=== PATIENT | male | born 1950 | race Two or more races ===

== ENCOUNTER 2018-05-22 09:27 | Emergency (ER) | payer MEDICARE, OTHER ==
[~2018-05-22] VITALS: Ht 170.2 cm; Wt 79.5 kg
[2018-05-22 10:33] VITALS: BP 144/78
[2018-05-22] MEDS ORDERED: HYDROcodone/acetaminophen 5mg/325mg tablet PO ONE (11:15)
[2018-05-22] MEDS ORDERED: bacitracin ointment unit dose packet TP STA (11:15)
[2018-05-22] MEDS ORDERED: bacitracin/polymyxin B 15 GM ointment TP STA (12:08)
== END 2018-05-22 11:36 | disposition home or self-care (01) ==
LOC: ER 09:28
DX: S90.911A Unspecified superficial injury of right ankle, initial encounter (principal); E11.9 Type 2 diabetes mellitus without complications; I10 Essential (primary) hypertension; F17.210 Nicotine dependence, cigarettes, uncomplicated; Z98.890 Other specified postprocedural states; X58.XXXA Exposure to other specified factors, initial encounter; Y93.89 Activity, other specified; Y92.89 Other specified places as the place of occurrence of the external cause; Y99.8 Other external cause status
CPT/HCPCS: 99283; A6255; A6446

== ENCOUNTER 2020-06-05 09:25 | Outpatient (CLI) | payer MEDICARE, MEDICAID ==
[2020-06-05] MEDS ORDERED: silver sulfadiazine cream 50gm TP ONE (09:53)
== END 2020-06-05 10:28 | disposition home or self-care (01) ==
LOC: WOUND CARE 09:25 → EDSTATUS 09:40 → WOUND CARE 10:28
PROVIDERS: ATTEND Nurse Practitioner
DX: T23.202D Burn of second degree of left hand, unspecified site, subsequent encounter (principal); T25.322D Burn of third degree of left foot, subsequent encounter; E11.622 Type 2 diabetes mellitus with other skin ulcer; L98.491 Non-pressure chronic ulcer of skin of other sites limited to breakdown of skin; E11.65 Type 2 diabetes mellitus with hyperglycemia; K74.60 Unspecified cirrhosis of liver; I10 Essential (primary) hypertension; F32.9 Major depressive disorder, single episode, unspecified; F17.210 Nicotine dependence, cigarettes, uncomplicated; Z86.73 Personal history of transient ischemic attack (TIA), and cerebral infarction without residual deficits; Z98.890 Other specified postprocedural states; X08.8XXD Exposure to other specified smoke, fire and flames, subsequent encounter
CPT/HCPCS: 82948; G0463

== ENCOUNTER 2020-06-15 09:33 | Outpatient (CLI) | payer MEDICARE, MEDICAID ==
[2020-06-15] MEDS ORDERED: silver sulfadiazine cream 50gm TP ONE (10:49)
== END 2020-06-15 11:14 | disposition home or self-care (01) ==
LOC: WOUND CARE 09:33 → EDSTATUS 09:40 → WOUND CARE 11:14
PROVIDERS: ATTEND Nurse Practitioner
DX: S51.002D Unspecified open wound of left elbow, subsequent encounter (principal); T25.322D Burn of third degree of left foot, subsequent encounter; T23.202D Burn of second degree of left hand, unspecified site, subsequent encounter; E11.65 Type 2 diabetes mellitus with hyperglycemia; K74.60 Unspecified cirrhosis of liver; I10 Essential (primary) hypertension; F32.9 Major depressive disorder, single episode, unspecified; F17.210 Nicotine dependence, cigarettes, uncomplicated; Z86.73 Personal history of transient ischemic attack (TIA), and cerebral infarction without residual deficits; Z98.890 Other specified postprocedural states; X58.XXXD Exposure to other specified factors, subsequent encounter; X08.8XXD Exposure to other specified smoke, fire and flames, subsequent encounter
CPT/HCPCS: 36416; 82948; G0463

== ENCOUNTER 2020-06-22 09:15 | Day surgery (SDC) | payer MEDICARE, MEDICAID ==
[2020-06-22] MEDS ORDERED: silver sulfadiazine cream 50gm TP ONE (11:04)
== END 2020-06-22 11:15 | disposition home or self-care (01) ==
LOC: WOUND CARE 09:15
PROVIDERS: ATTEND Nurse Practitioner Family
DX: T25.322D Burn of third degree of left foot, subsequent encounter (principal); E11.65 Type 2 diabetes mellitus with hyperglycemia; K74.60 Unspecified cirrhosis of liver; I10 Essential (primary) hypertension; F32.9 Major depressive disorder, single episode, unspecified; F17.210 Nicotine dependence, cigarettes, uncomplicated; Z86.73 Personal history of transient ischemic attack (TIA), and cerebral infarction without residual deficits; Z98.890 Other specified postprocedural states; X08.8XXD Exposure to other specified smoke, fire and flames, subsequent encounter
CPT/HCPCS: 16020; 97597; 97598

== ENCOUNTER 2020-07-27 09:30 | Day surgery (SDC) | payer MEDICARE, MEDICAID ==
[2020-07-27] MEDS ORDERED: LIDOcaine 2% 5ml jelly ONE (09:48)
== END 2020-07-27 10:37 | disposition home or self-care (01) ==
LOC: WOUND CARE 09:30
PROVIDERS: ATTEND Nurse Practitioner
DX: T25.322D Burn of third degree of left foot, subsequent encounter (principal); E11.65 Type 2 diabetes mellitus with hyperglycemia; K74.60 Unspecified cirrhosis of liver; I10 Essential (primary) hypertension; F32.9 Major depressive disorder, single episode, unspecified; F17.210 Nicotine dependence, cigarettes, uncomplicated; Z86.73 Personal history of transient ischemic attack (TIA), and cerebral infarction without residual deficits; Z98.890 Other specified postprocedural states; X08.8XXD Exposure to other specified smoke, fire and flames, subsequent encounter
CPT/HCPCS: 16030; 36416; 82948

== ENCOUNTER 2020-08-12 09:10 | Day surgery (SDC) | payer MEDICARE, MEDICAID ==
[2020-08-12] MEDS ORDERED: LIDOcaine 2% 5ml jelly ONE (09:18)
== END 2020-08-12 10:01 | disposition home or self-care (01) ==
LOC: WOUND CARE 09:10
PROVIDERS: ATTEND Nurse Practitioner
DX: T25.322D Burn of third degree of left foot, subsequent encounter (principal); E11.65 Type 2 diabetes mellitus with hyperglycemia; K74.60 Unspecified cirrhosis of liver; I10 Essential (primary) hypertension; F32.9 Major depressive disorder, single episode, unspecified; F17.210 Nicotine dependence, cigarettes, uncomplicated; Z86.73 Personal history of transient ischemic attack (TIA), and cerebral infarction without residual deficits; Z98.890 Other specified postprocedural states; X08.8XXD Exposure to other specified smoke, fire and flames, subsequent encounter
CPT/HCPCS: 16020; 36416; 82948; 97597